=== PATIENT | female | born 1965 | race Caucasian/White ===

== ENCOUNTER → 2021-07-28 | Outpatient (CLI) | payer OTHER ==
[~2021-07-28] MED LIST: FLUO20 PO; Synthroid125 MCG
== END | disposition home or self-care (01) ==
LOC: LAB SHORT 14:15 → LAB 14:15
DX: R07.89 Other chest pain (principal)
CPT/HCPCS: 87338

== ENCOUNTER → 2023-08-24 | Outpatient (CLI) | payer OTHER ==
[~2023-08-24] MED LIST changes: +ASPI325 PO; +ESCI10 PO; +FAMO40 PO; +LEVSOD137 PO; +Lisinopril-Hct1 EAC4; +OMEP20ER; +PREDNISOLO15 MG/5 ML; +ZESTORETIC 20-1 EAC2 PO
[2023-08-31 11:34] LABS: Stool Occult Bld Immuno 1 Negative (NEGATIVE)
== END ==
LOC: LAB 12:00 → LAB SHORT 12:00
PROVIDERS: Physician Assistant
DX: R10.13 Epigastric pain (principal)
CPT/HCPCS: G0328